=== PATIENT | male | born 1960 | race Caucasian/White ===

== ENCOUNTER 2022-12-20 21:25 | Emergency (ER) | payer SELFPAY ==
[~2022-12-20] VITALS: Ht 167.6 cm; Wt 82.0 kg
[2022-12-20 21:33] VITALS: TEMP 98.4; O2SAT 98
[2022-12-20] MEDS ORDERED: TETANUS, DIPHTHERIA, PERTUSSIS VAC/PF 0.5ML (>10YR OLD) IM ONE (22:45)
[2022-12-20] MEDS ORDERED: HYDROCODONE/ACETAMINOPHEN 5/325MG TABLET PO ONE (22:45)
[2022-12-20] MEDS ORDERED: BACITRACIN ZINC OINT UDPKT TOP ONE (22:45)
[2022-12-20] MEDS ORDERED: LIDOCAINE HCL/EPINEPHRINE 1%-EPI 1:100,000 20 ML VIAL INFIL ONE (22:45)
[2022-12-20 23:19] VITALS: BP 144/62; PULSE 100; RESP 16
[2022-12-21] MEDS ORDERED: IBUP-2029 MT (00:56)
[2022-12-21] MEDS ORDERED: CEPH500C2 MT (00:56)
== END 2022-12-21 04:05 | disposition home or self-care (01) ==
LOC: ER 21:25
DX: S01.81XA Laceration without foreign body of other part of head, initial encounter (principal); Y08.89XA Assault by other specified means, initial encounter; Y93.89 Activity, other specified; Y92.89 Other specified places as the place of occurrence of the external cause; Y99.8 Other external cause status
CPT/HCPCS: 99285; 70450; 90715; 12015; 90471; J3490